=== PATIENT | female | born 1930 | race Caucasian/White ===

== ENCOUNTER 2016-06-03 07:48 | Outpatient (CLI) | payer OTHER ==
[~2016-06-03 07:48] MED LIST: CALCIUM; MAGNESIUM; RED YEAST RICE600 MG PO; VITAMIN B12100 MCG; VITAMIN C500 M1 PO; VITAMIN D-31000 UNIT PO; [UNRECOGNIZED DRUG - OTHER]
--- NOTE | 2016-06-03 10:19 | DIAGNOSTIC IMAGING REPORT ---
PROCEDURE: US COMPLETE PELVIC W/TRANSVAG INDICATION: ABDOMINAL BLOATING TECHNIQUE: Transabdominal and endovaginal larry scale and color Doppler sonographic images of the female pelvis were obtained. COMPARISON: None. FINDINGS: TRANSABDOMINAL SCANS: Hypoechoic area centrally in the pelvis with through transmission suggestive of a fluid-filled structure in the uterus. The ovaries are not identified. No free pelvic fluid. Partially imaged urinary bladder appears grossly normal. TRANSVAGINAL SCANS: An amorphous, ill-defined cystic lesion is in the central pelvis measuring approximately 10.0 x 8.0 5.4 cm. No detectable vascularity. The davis are not well defined. Uterus or ovaries were not identified. No free fluid. IMPRESSION: 1. Amorphous, avascular fluid-filled structure in the lower central pelvis may be a cystic mass arising from either ovary. 2. Normal uterus and ovaries are not identified. 3. Consider advanced imaging either CT or MRI of the abdomen and pelvis for further delineation of cystic structure.
--- NOTE | 2016-06-03 10:22 | DIAGNOSTIC IMAGING REPORT ---
PROCEDURE: US ABDOMEN ULTRASOUND-COMPLETE INDICATION: ABDOMINAL BLOATING TECHNIQUE: Corea scale and color Doppler sonographic images of the abdomen were obtained without comparison. COMPARISON: None. FINDINGS: The liver is normal in size, contour, and echotexture. No mass or intrahepatic biliary dilatation. The gallbladder contains multiple tiny dependently layering, shadowing calculi which move with patient position change. The wall is normal thickness measuring 1.7 mm. No pericholecystic fluid or Mckinney sign. The extrahepatic common duct is normal measuring 4.4 mm. The pancreas was not well seen. The abdominal aorta is normal in its course and caliber but mildly irregular secondary to mild calcific atherosclerosis. The retrohepatic inferior vena cava is patent. There is appropriate hepatopetal flow in the portal vein. The right kidney measures 10.6 cm in length. The left kidney measures 10.6 cm in length. Both kidneys demonstrate normal morphology and cortical thickness without hydronephrosis, cyst, solid mass, or shadowing calculus. Color Doppler imaging demonstrates normal blood flow in each kidney. The spleen is normal in size measuring 7.7 cm in length. There is no perihepatic or perisplenic ascites. IMPRESSION: 1. Cholelithiasis without sonographic evidence of cholecystitis.
== END 2016-06-03 23:00 ==
LOC: US SRH 07:48
DX: R14.0 Abdominal distension (gaseous) (principal); K80.20 Calculus of gallbladder without cholecystitis without obstruction

== ENCOUNTER 2016-09-21 07:47 | Outpatient (CLI) | payer OTHER ==
--- NOTE | 2016-09-21 09:34 | DIAGNOSTIC IMAGING REPORT ---
PROCEDURE: US NONVASCULAR EXTREMITY-LEFT INDICATION: BAKERS CYST; LEFT KNEE PAIN TECHNIQUE: Corea scale and color Doppler sonographic images of the popliteal fossa were obtained COMPARISON: None. FINDINGS: On the left posterior knee there is a complex Wilhelm's cyst that measures 3.6 x 1.9 x 2.8 cm. On the right knee posteriorly there is a Wilhelm's cyst that measures 5 x 2 x 1.3 cm. IMPRESSION: 1. Bilateral Wilhelm's cyst.
== END 2016-09-21 23:00 ==
LOC: US SRH 07:47
DX: M71.22 Synovial cyst of popliteal space [Baker], left knee (principal); M71.21 Synovial cyst of popliteal space [Baker], right knee